=== PATIENT | female | born 1950 | race Caucasian/White ===

== ENCOUNTER 2019-07-21 08:46 | Emergency (ER) | payer OTHER ==
[~2019-07-21] VITALS: Ht 172.7 cm; Wt 90.7 kg
[2019-07-21] MEDS ORDERED: JANUMET 50-1,01 EACH PO (08:57)
[2019-07-21] MEDS ORDERED: LEVO-T25 MCG PO (08:57)
[2019-07-21] MEDS ORDERED: NORCO 5-325 TA1 EAC1 PO (10:53)
[2019-07-21 11:12] VITALS: BP 122/80
== END 2019-07-21 11:13 | disposition home or self-care (01) ==
LOC: M.ERS 08:46
DX: S52.591A Other fractures of lower end of right radius, initial encounter for closed fracture (principal); M25.431 Effusion, right wrist; E11.9 Type 2 diabetes mellitus without complications; Z98.51 Tubal ligation status; E03.9 Hypothyroidism, unspecified; W18.39XA Other fall on same level, initial encounter; Y93.89 Activity, other specified; Y92.89 Other specified places as the place of occurrence of the external cause; Y99.8 Other external cause status

== ENCOUNTER 2019-07-24 13:09 | Emergency (ER) | payer OTHER ==
[~2019-07-24] VITALS: Ht 172.7 cm; Wt 90.7 kg
[~2019-07-24 13:09] MED LIST: JANUMET 50-1,01 EACH PO; LEVO-T25 MCG PO; NORCO 5-325 TA1 EAC1 PO
[2019-07-24] MEDS ORDERED: IBUPROFEN 800800 MG PO (13:53)
[2019-07-24 14:10] VITALS: BP 127/72
== END 2019-07-24 14:11 | disposition home or self-care (01) ==
LOC: M.ERS 13:09
DX: S52.591A Other fractures of lower end of right radius, initial encounter for closed fracture (principal); S52.611A Displaced fracture of right ulna styloid process, initial encounter for closed fracture; E11.9 Type 2 diabetes mellitus without complications; E03.9 Hypothyroidism, unspecified; Z98.51 Tubal ligation status; Z88.0 Allergy status to penicillin; X58.XXXA Exposure to other specified factors, initial encounter; Y93.89 Activity, other specified; Y92.89 Other specified places as the place of occurrence of the external cause; Y99.8 Other external cause status

== ENCOUNTER 2021-08-22 16:24 | Emergency (ER) | payer OTHER ==
[~2021-08-22] VITALS: Ht 172.7 cm; Wt 90.7 kg
[~2021-08-22 16:24] MED LIST changes: +IBUPROFEN 800800 MG PO
[2021-08-22] MEDS ORDERED: SIMVASTATIN5 MG PO (16:30)
[2021-08-22 17:41] VITALS: BP 139/85
== END 2021-08-22 17:43 | disposition home or self-care (01) ==
LOC: M.ERS 16:24
DX: R50.9 Fever, unspecified (principal); Z20.822 Contact with and (suspected) exposure to COVID-19; E11.9 Type 2 diabetes mellitus without complications; E03.9 Hypothyroidism, unspecified; Z98.51 Tubal ligation status; Z79.899 Other long term (current) drug therapy; Z88.0 Allergy status to penicillin